=== PATIENT | male | born 2000 | race Caucasian/White ===

== ENCOUNTER → 2024-05-29 10:11 | Outpatient (CLI) | payer OTHER, SELFPAY ==
[2024-05-29 20:23] LABS: Add Manual Diff / Slide Review NO; Basophils Absolute Auto 100 /uL (0-100); Basophils Percent Auto 0.7 % (0-2); Eosinophils Absolute Auto 100 /uL (0-450); Eosinophils Percent Auto 1.6 % (2-4); Lymphocytes Absolute Auto 2600 /uL (1100-4500); Lymphocytes Percent Auto 31.6 % (25-40); Mean Corpuscular HGB Conc 33.2 % (30-36); Mean Corpuscular Hemoglobin 27.2 PG (26-34); Monocytes Absolute Auto 700 /uL (0-900); Monocytes Percent Auto 8.5 % (3-14); Neutrophils Absolute Auto 4700 /uL (1500-7000); Neutrophils Percent Auto 57.6 % (50-75); Platelet Count 290 X10^3/uL (150-400); Red Blood Cell Count 5.49 X10^6/uL (4.5-5.9); Red Cell Distribution Width 13.7 % (11.6-14.8); White Blood Cell Count 8.1 X10^3/uL (4.5-11.0)
[2024-05-29 20:29] LABS: Alanine Aminotransferase 47 IU/L (<50); Albumin 4.3 g/dL (3.5-5.0); Albumin Globulin Ratio 1.7 (1.0-2.8); Alkaline Phosphatase 85 U/L (38-126); Aspartate Aminotransferase 31 IU/L (17-59); Bilirubin Total 0.4 mg/dL (0.2-1.3); Blood Urea Nitrogen 19 mg/dL (9-20); Calcium 9.8 mg/dL (8.4-10.2); Carbon Dioxide 28 mmol/L (22-32); Chloride 104 mmol/L (98-107); Cholesterol 208 mg/dL (140-199); Estimated Glomerular Filt Rate > 60 mL/min (>60); Globulin 2.5 g/dL (1.7-4.1); Glucose 94 mg/dL (70-100); HDL Cholesterol 47 mg/dL (40-60); HEMOLYSIS < 15 (0-50); LDL Cholesterol Calculated 140 mg/dL (<100); Potassium 4.5 mmol/L (3.4-5.1); Sodium 139 mmol/L (137-145); Total Protein 6.8 g/dL (6.3-8.2); Triglycerides 103 mg/dL (35-150)
[2024-05-29 21:00] LABS: TSH w/ Reflex to FT4 1.86 uIU/mL (0.47-4.68)
== END ==
PROVIDERS: PCP Physician Assistant Medical; Visit Provider Physician Assistant Medical
DX: Z13.6 Encounter for screening for cardiovascular disorders (principal); Z13.29 Encounter for screening for other suspected endocrine disorder; Z13.0 Encounter for screening for diseases of the blood and blood-forming organs and certain disorders involving the immune mechanism; M54.9 Dorsalgia, unspecified
CPT/HCPCS: 80053; 80061; 84443; 85025

== ENCOUNTER 2024-07-11 17:10 | Emergency (ER) | payer OTHER, SELFPAY ==
[2024-07-11 17:15] VITALS: BP 152/87; PULSE 87; RESP 16; TEMP 36.3; O2SAT 95; BMI 54.1
--- NOTE | 2024-07-11 17:23 | ED_ITS ---
<Statement entered by Reji Santiago DO - 07/11/24 19:15> Dr. Santiago: I was immediately available in the department for consultation. I did not actually see the patient. HPI - Eye Problem General Chief complaint: Eye Problems Stated complaint: swollen lft eye Time Seen by Provider: 07/11/24 17:22 History of Present Illness HPI Narrative: Seven Rand is a pleasant 24-year-old male with a past medical history of obesity who presents to the emergency department for red irritated left eye x3 days. Patient states his mom who is with him had pinkeye about 2 weeks ago. States that about 3 days ago his left eye started to get red and teary eyed and he has foreign body sensation but does not recall getting anything into the eye. Denies any changes to his vision, no spots specks or floating lights. No pain with eye movement. He does not wear contact lenses but he does wear prescription glasses. He reports feeling fatigued but otherwise no symptoms such as fever, chills, cough, sore throat, ear pain. Related Data Previous Rx's Medication Instructions Recorded erythromycin 5 mg/gram (0.5 %) eye 1 cm EYE-LEFT QID 5 days #3.5 grams 07/11/24 ointment Allergies Allergy/AdvReac Type Severity Reaction Status Date / Time No Known Drug Allergies Allergy Verified 06/10/24 14:40 Review of Systems Review of Systems ROS Unobtainable: All systems reviewed & are unremarkable except as noted in HPI and below Patient History Medical History Foot pain (~2019) Back Pain (~2021) Family History Father Diabetes mellitus History of heart disease Hypertension Hyperlipidemia Stroke Mother Mental health problem Social History Smoking Status: Never smoker Smoking Status: Never smoker Exam Narrative Exam Narrative: GENERAL: 24 year old patient appears stated age. Obese patient, in no acute distress. HEAD: Atraumatic. Normocephalic. EYES: PERRL. Extraocular motions intact. Diffuse erythema of left conjunctiva with active watering of the eye. No erythema or edema of the periorbital region. After eversion of left upper eyelid, there is no visualized abnormalities. Intra-ocular pressure is 15. Fluorescein exam: Negative Dang sign. Just inferior and medial to the pupil there is a corneal abrasion approximately 2 mm. ENT: Nose without bleeding, purulent drainage. Throat without erythema, tonsillar hypertrophy or exudate. Airway patent. NECK: Trachea midline. Cervical ROM intact. RESPIRATORY: ?Nonlabored respirations. ?Speaking in clear, full sentences. NEURO: AOx3. ?Clear speech. ?Moves all 4 extremities appropriately. SKIN: No rash or erythema of visible areas Initial Vital Signs Initial Vital Signs: Vital Signs Temperature 97.3 F L 07/11/24 17:15 Pulse Rate 87 07/11/24 17:15 Respiratory Rate 16 07/11/24 17:15 Blood Pressure 152/87 H 07/11/24 17:15 Pulse Oximetry 95 07/11/24 17:15 Oxygen Delivery Method Room Air 07/11/24 17:15 Course Orders Ordered: Discontinued Medications Erythromycin (Erythromycin Ophth 1 Gm Oint) 1 applic EYE-LEFT NOW ONE Stop: 07/11/24 18:14 Last Admin: 07/11/24 18:25 Dose: 1 applic Fluorescein Sodium (Fluorescein 1 Mg Strip) 1 mg EYE-LEFT NOW ONE Stop: 07/11/24 17:32 Last Admin: 07/11/24 17:40 Dose: 1 mg Proparacaine HCl (Proparacaine 0.5% Ophth Kathi) 1 drops EYE-LEFT NOW ONE Stop: 07/11/24 17:32 Last Admin: 07/11/24 17:39 Dose: 1 drop Vital Signs Vital signs: Vital Signs - 8 hr 07/11/24 17:15 07/11/24 18:21 Temperature 97.3 F L Pulse Rate 87 58 L Respiratory Rate 16 16 Blood Pressure 152/87 H 148/72 H Pulse Oximetry 95 97 Oxygen Delivery Method Room Air Room Air MDM - Eye Problem Medical Records Attestation: I reviewed the patient's medical records. MDM Narrative Medical decision making narrative: 24-year-old male with a past medical history of obesity who presents to the emergency department for red irritated left eye x3 days. Differential diagnosis includes but is not limited to conjunctivitis, corneal abrasion, foreign body, corneal ulcer, acute glaucoma, uveitis, etc. On exam the patient is in no acute distress, nontoxic appearing, vital signs appropriate. He is having no visual disturbance, gross vision intact. Left conjunctiva quite erythematous. Fluorescein exam reveals a corneal abrasion. Normal intra-ocular pressure. Discussed case with the attending ED physician Dr. Farrell. we will treat patient with erythromycin ophthalmic ointment 4 times a day x5 days and advise he follow up with the fitness professional. 1st dose given in the emergency department. Strict ED return precautions were discussed. Patient has mom verbalized understanding all information agreeable to the plan. He is stable for discharge home. Discharge Plan Departure Patient Disposition: Home Clinical Impression: Corneal abrasion, left Qualifiers: Encounter type: initial encounter Qualified Code(s): S05.02XA - Injury of conjunctiva and corneal abrasion without foreign body, left eye, initial encounter Instructions: DI for Corneal Abrasion Activity Restrictions/Additional Instructions: Thank you for coming to the emergency department. Today you were evaluated for an irritated and red left eye. Your physical exam reveals an abrasion on your left cornea. This needs to be treated with topical antibiotic ointment which has been sent to your pharmacy. Please avoid touching and rubbing the left eye. Please follow up with the eye doctor as soon as possible for further evaluation. You can call to schedule an appointment with Ophthalmology here in [facility] at [phone] or you can follow up with the doctor on [facility]. Please follow up with your primary care doctor within the next 2-3 days for ER follow-up. (If you do not have a PCP you can call [phone]. ?to schedule an appointment with an [facility] Primary Care Provider) IF YOU DEVELOP ANY NEW OR WORSENING SYMPTOMS, RETURN TO THE ER! Please read the attached instructions, they highlight more specific treatments and interventions for you at home. Thank you for letting me participate in your care, Zoraida Hu PA-C Prescriptions: New erythromycin 5 mg/gram (0.5 %) ointment 1 cm EYE-LEFT QID 5 Days Qty: 3.5 0RF Referrals: Amanda Medellin PA-C [Primary Care Provider] - Stand Alone Forms: Patient Portal/API/Survey
[2024-07-11] MEDS: PROPARACAINE 0.5% OPHTH SOL 1 DROPS EYE-LEFT (17:39)
[2024-07-11] MEDS: FLUORESCEIN 1 MG STRIP EYE-LEFT (17:40)
[2024-07-11 18:21] VITALS: BP 148/72; PULSE 58; RESP 16; O2SAT 97
--- NOTE | 2024-07-11 18:22 | PC.NURSE ---
Pt seen and assessed by provider prior to this RN entring the room
[2024-07-11] MEDS: ERYTHROMYCIN OPHTH 1 GM OINT 1 APPLIC EYE-LEFT (18:25)
== END 2024-07-11 18:31 | disposition home or self-care (01) ==
PROVIDERS: Emergency Provider Physician Assistant; PCP Physician Assistant Medical
DX: S05.02XA Injury of conjunctiva and corneal abrasion without foreign body, left eye, initial encounter (principal)
CPT/HCPCS: 99282

== ENCOUNTER → 2024-12-09 09:48 | Outpatient (CLI) | payer OTHER, SELFPAY ==
[2024-12-09 19:49] LABS: Alanine Aminotransferase 46 IU/L (<50); Albumin 4.1 g/dL (3.5-5.0); Albumin Globulin Ratio 1.6 (1.0-2.8); Alkaline Phosphatase 84 U/L (38-126); Blood Urea Nitrogen 18 mg/dL (9-20); Calcium 9.3 mg/dL (8.4-10.2); Carbon Dioxide 26 mmol/L (22-32); Chloride 104 mmol/L (98-107); Cholesterol 187 mg/dL (140-199); Estimated Glomerular Filt Rate > 60 mL/min (>60); Globulin 2.5 g/dL (1.7-4.1); Glucose 98 mg/dL (70-99); HDL Cholesterol 47 mg/dL (40-60); HEMOLYSIS 16 (0-50); Potassium 4.4 mmol/L (3.4-5.1); Sodium 138 mmol/L (137-145); Total Protein 6.6 g/dL (6.3-8.2); Triglycerides 115 mg/dL (35-150)
[2024-12-09 20:21] LABS: TSH w/ Reflex to FT4 1.87 uIU/mL (0.47-4.68)
== END ==
PROVIDERS: PCP Physician Assistant Medical; Visit Provider Physician Assistant Medical
DX: Z13.1 Encounter for screening for diabetes mellitus (principal); Z13.0 Encounter for screening for diseases of the blood and blood-forming organs and certain disorders involving the immune mechanism; Z13.29 Encounter for screening for other suspected endocrine disorder; Z13.6 Encounter for screening for cardiovascular disorders
CPT/HCPCS: 80053; 80061; 84443